=== PATIENT | male | born 1965 | race Two or more races ===

== ENCOUNTER 2021-03-08 08:26 | Outpatient (REF) | payer MEDICAID, SELFPAY ==
--- NOTE | ~2021-03-08 | XR_ITS ---
EXAMINATION: XR CHEST CLINICAL INFORMATION: Opioid dependence COMPARISON: None TECHNIQUE: 2 views of the chest were obtained. FINDINGS: No significant abnormality is noted involving the heart, lungs, mediastinum, bony thorax or soft tissues. XR/XR chest 2V IMPRESSION: Unremarkable examination.
== END 2021-03-08 08:27 | disposition home or self-care (01) ==
LOC: HO.XRAY 08:26
PROVIDERS: Visit Provider Emergency Medicine
DX: F11.20 Opioid dependence, uncomplicated (principal)
CPT/HCPCS: 71046

== ENCOUNTER 2021-11-29 12:50 | Outpatient (REF) | payer MEDICAID, SELFPAY ==
[2021-11-29 14:09] LABS: COVID-19 Test Negative (Negative); IDNOW Serial# 08D9AD1C
== END 2021-11-29 12:51 | disposition home or self-care (01) ==
LOC: HO.LAB 12:50
PROVIDERS: Visit Provider Internal Medicine
DX: Z20.822 Contact with and (suspected) exposure to COVID-19 (principal)
CPT/HCPCS: 87635; C9803

== ENCOUNTER 2022-08-21 11:19 | Outpatient (REF) | payer MEDICAID, SELFPAY ==
--- NOTE | ~2022-08-21 | XR_ITS ---
EXAMINATION: XR CHEST CLINICAL INFORMATION: Active tuberculosis COMPARISON: 03/08/2021 TECHNIQUE: 2 views of the chest were obtained. FINDINGS: No significant abnormality is noted involving the heart, lungs, mediastinum, bony thorax or soft tissues. XR/XR chest 2V IMPRESSION: Unremarkable examination.
== END 2022-08-21 11:20 | disposition home or self-care (01) ==
LOC: HO.XRAY 11:19
PROVIDERS: PCP Registered Nurse; Visit Provider Registered Nurse
DX: R76.11 Nonspecific reaction to tuberculin skin test without active tuberculosis (principal)
CPT/HCPCS: 71046

== ENCOUNTER 2022-09-19 07:46 | Outpatient (REF) | payer MEDICAID, SELFPAY ==
--- NOTE | 2022-09-19 | PFT_ITS ---
INDICATION: Asthma. SPIROMETRY: FEV1 to FVC of 32% with an FEV1 of 1.41 L, which is 37% predicted and an FVC of 4.41 L, which is 92% predicted. Post bronchodilators there was a significant improvement of the FEV1 and the FVC. To note, the [id number] decreased down to 16% predicted. Maximum voluntary ventilation 25% predicted. LUNG VOLUMES: Total lung capacity 95% predicted with a residual volume 134% predicted. DIFFUSION CAPACITY: DLCO 42% predicted. COMPARISONS: None. INTERPRETATION: There is an obstructive ventilatory defect consistent with severe COPD. there is a significant response to bronchodilators noted and significant small airways disease. There is also a severely decreased maximum voluntary ventilation secondary to likely deconditioning and also worsening dynamic inspiratory capacity. Lung volumes are significant for significant air trapping due to the COPD. There is also a severe diffusion impairment likely secondary to emphysema and other parenchymal lung conditions should be considered. Clinical correlation warranted. Dakotah Espinosa MD MR/MODL / [id number]
== END 2022-09-19 07:47 | disposition home or self-care (01) ==
LOC: HO.RESP 07:46
PROVIDERS: PCP Registered Nurse; Visit Provider Registered Nurse
DX: J45.20 Mild intermittent asthma, uncomplicated (principal)
CPT/HCPCS: 94060; 94727; 94729

== ENCOUNTER 2022-09-25 13:32 | Outpatient (REF) | payer MEDICAID, SELFPAY ==
--- NOTE | ~2022-09-25 | US_ITS ---
EXAMINATION: US SCROTUM CLINICAL INFORMATION: Possible hernia. COMPARISON: None TECHNIQUE: A sonogram of the scrotum was performed assessing cardenas-scale appearance and color Doppler flow. Spectral Doppler analysis of the arterial and venous flow were performed in the testes bilaterally. FINDINGS: RIGHT: Right testicle measures 4.2 x 1.6 x 2.5 cm, volume 8.8 mL. No focal testicular parenchymal lesions are visualized. Spectral Doppler analysis of the arterial and venous flow is normal in the right testis. Testicular appendix measures 0.2 cm. Right epididymal head is normal in size. No right hydrocele is seen. Varicocele present. Right epididymal Doppler flow is normal. No inguinal hernia identified. LEFT: Left testicle measures 4.1 x 1.8 x 2.5 cm, volume 9.7 mL. No focal testicular parenchymal lesions are visualized. Spectral Doppler analysis of the arterial and venous flow is normal in the left testis. Left epididymal head is normal. There is some increased vascularity and thickening of the epididymal tail. No left hydrocele is seen. No varicocele. US/US scrotum IMPRESSION: 1. No inguinal hernia identified. 2. Right-sided varicocele. 3. Mild thickening and increased vascularity of the left epididymal tail. This could represent epididymitis.
== END 2022-09-25 13:33 | disposition home or self-care (01) ==
LOC: HO.US 13:32
PROVIDERS: Visit Provider Registered Nurse
DX: R10.31 Right lower quadrant pain (principal)
CPT/HCPCS: 76870

== ENCOUNTER → 2022-11-15 10:32 | Outpatient (BNVA) | payer MEDICAID, SELFPAY | PROVIDERS: PCP Registered Nurse; Visit Provider Urology | DX: S76.211A Strain of adductor muscle, fascia and tendon of right thigh, initial encounter (principal); N50.819 Testicular pain, unspecified; N40.0 Benign prostatic hyperplasia without lower urinary tract symptoms; Z12.5 Encounter for screening for malignant neoplasm of prostate | CPT/HCPCS: 99202 ==

== ENCOUNTER → 2023-01-12 13:12 | Outpatient (BNVA) | payer MEDICAID, SELFPAY | PROVIDERS: PCP Registered Nurse; Visit Provider Hospitalist | DX: J44.9 Chronic obstructive pulmonary disease, unspecified (principal); F17.200 Nicotine dependence, unspecified, uncomplicated | CPT/HCPCS: 99202 ==

== ENCOUNTER 2023-02-23 13:29 | Outpatient (REF) | payer MEDICAID, SELFPAY ==
--- NOTE | ~2023-02-23 | CT_ITS ---
EXAMINATION: CT CHEST SCREENING CLINICAL INFORMATION: Current smoker. 37 pack year history. COMPARISON: None available. TECHNIQUE: Multidetector volumetric CT imaging of the chest is performed without contrast using low dose technique. Additional 2D coronal and sagittal reformatted images and axial 3D maximum intensity projection (MIP) images are generated on the CT workstation. This CT examination was performed using dose optimization techniques as appropriate, variously including the following: *Automated exposure control *Adjustment of mA and/or kV according to patient size (this includes techniques or standardized protocols for targeted exams where dose is matched to indication/reason for exam; i.e. extremities or head) *Use of iterative reconstruction technique DLP: 48 mGy-cm FINDINGS: LUNGS: Mild bronchial wall thickening and areas of bronchial soft tissue opacification. Scarring or subsegmental atelectasis in the right middle lobe. Mild emphysema. MEDIASTINUM: The mediastinum is normal. CORONARY ARTERY CALCIFICATION: None visualized on this study. PLEURA: There is no pleural effusion. No pleural mass or thickening. AXILLA: No lymphadenopathy. UPPER ABDOMEN: Partially visualized 5.5 cm low-attenuation area in the right upper quadrant. Is uncertain if this represents a fluid-filled dilated bowel are present cyst. OSSEOUS STRUCTURES: Degenerative changes of the spine. CT/CT lung screening IMPRESSION: Mild emphysema. Scattered airways disease with bronchial wall thickening and some soft tissue opacification. Question fluid-filled dilated loop of bowel versus cyst in the right upper quadrant. Partially imaged. ASSESSMENT: Lung-RADS category 2: Benign RECOMMENDATION: Annual low-dose chest CT follow-up recommended.
== END 2023-02-23 13:30 | disposition home or self-care (01) ==
LOC: HO.CT 13:29
PROVIDERS: PCP Registered Nurse; Visit Provider Physician Assistant Medical
DX: Z12.2 Encounter for screening for malignant neoplasm of respiratory organs (principal); F17.210 Nicotine dependence, cigarettes, uncomplicated
CPT/HCPCS: 71271; G0296

== ENCOUNTER 2023-05-15 09:46 | Outpatient (AMB) | payer MEDICAID, SELFPAY ==
[2023-05-15 09:57] VITALS: BP 136/78; PULSE 72; O2SAT 96; BMI 21.1
--- NOTE | 2023-05-15 09:57 | A.OFFVIS_ITS ---
Intake Vital Signs 05/15/23 09:57 Height 5 ft 11 in Weight 151 lb 0.266 oz BMI 21.1 BP 136/78 Blood Pressure Location Lt brachial Position Sitting Pulse 72 Pulse Source Pulse Oximeter Pulse Oximetry (%) 96 Oxygen Delivery Method Room Air Intake Visit Reasons: asthma Department Traffic Freight Router Required: No Allergies No Known Allergies Allergy (Verified 05/15/23 10:01) HPI HPI Comments History of Present Illness Details The patient has had worsening respiratory symptoms. Significant coughing wheezing. Sometimes he gets up with severe chest tightness and wheezing and has to use his either albuterol or nebulized therapy to improve his symptoms. He has been using Symbicort twice a day in addition to his rescue inhaler. He did undergo pulmonary function studies sometime in September 2022 which I personally reviewed with him. He has a very severe obstruction consistent with very severe COPD and also has significant diffusion impairment. We did go for brief walking oximetry the patient did desaturate down to the low 90s but did not qualify for oxygen. The patient likely has severe asthma as well he continues to smoke and he needs to quit. At this moment will go ahead and maximize his respiratory therapy by switching over to nebulized therapy since he failed inhalers. Hopefully with that he will start feeling better. The patient does have prednisone at home that he can take if he worsens. In the meantime the patient will be set up for the lung cancer screening program and will be assisted with smoking cessation. Based on his severe disease at an early age were also do alpha-1 testing to rule out alpha-1 antitrypsin deficiency. 05/15/2023 the patient is here for a pulmonary follow-up visit. Overall he is still having hard time with breathing. Does have severe COPD. The patient un fortunately continues to smoke cigarettes. He tried multiple nicotine supplementations at the not helpful. Therefore will go ahead and prescribe Chantix for him. He understands that to watch for any signs and symptoms of depression. I also spoke to the family. If she does he can stop the medicine and call. Otherwise hopeful that he can stop smoking with Chantix. The patient has had a lot of respiratory medications. Right now is hard for him to stay adherent to all this therapy. He is still using the Symbicort and also Brovana and budesonide in addition to Spiriva. Will go ahead and simplify his regimen by switching over to Trelegy 200. He can also continue using the budesonide and the albuterol based on his severe obstruction. I am hopeful that when he stops smoking his symptoms improved. He also had a lung cancer screening CT scan. We did review it demonstrating some emphysema and also chronic bronchitis. [facility] Medical History (Updated 02/23/23 @ 13:24 by Isis Beltrán PA-C) Asthma-COPD overlap syndrome Groin strain Hepatitis A immune History of latent tuberculosis Hypertension, essential, benign Mild intermittent asthma Nicotine dependence, cigarettes, uncomplicated Opioid dependence Retinal vein occlusion of left eye Social History (Updated 02/23/23 @ 13:25 by Isis Beltrán PA-C) Patient Tobacco Use Status: Current everyday Tobacco user Tobacco use type: Cigarette Cigarettes Per Day: 10 Years Smoked: (onset 18yo, 1/2ppd x 40yrs, 20PYH) Review of Systems Const Reports no additional complaints Eyes Reports no additional complaints ENT Denies neck pain Card Denies leg edema and Reports dyspnea on exertion Resp Reports cough, Reports dyspnea on exertion and Reports wheezing GI Denies constipation Musc Reports no additional complaints and Denies neck pain Skin/Breast Denies rash and Denies unusual bruising Neuro Reports no additional complaints Psych Reports no additional complaints Endo Reports no additional complaints Cristino/Lymph Reports no additional complaints Aller/Immun Reports no additional complaints and Reports wheezing Physical Exam Vital Signs: Last Vital Signs Pulse 72 05/15/23 09:57 BP 136/78 05/15/23 09:57 Pulse Ox 96 05/15/23 09:57 Oxygen Delivery Method Room Air 05/15/23 09:57 BMI result Body Mass Index 21.1 Const General: healthy appearing, no acute distress and well developed Orientation/consciousness: patient oriented x3 HEENT Head: Yes normocephalic and Yes atraumatic Eyes Conjunctivae: conjunctivae normal Neck Neck: Yes normal visual inspection Chest Chest palpation & inspection: normal inspection of the chest Resp Effort & Inspection: audible wheezes Auscultation: wheezes Cardio Rate: regular rate Rhythm: regular rhythm Heart sounds: S1 normal heart sound present and S2 normal heart sound present GI Inspection: Yes normal to inspection Palpation (GI): Soft to palpation Other: Prostate Exam: smooth, 1+ right groin tenderness Skin General skin exam: no rashes or lesions noted Neuro General: patient oriented x3 Extrem General: No pedal edema Psych Appearance: grossly normal Affect: normal affect Assessment & Plan Assessment & Plan (1) Tobacco dependence: Code(s): F17.200 - Nicotine dependence, unspecified, uncomplicated (2) Asthma-COPD overlap syndrome: Code(s): J44.9 - Chronic obstructive pulmonary disease, unspecified Plan Stop Brovana Start Trelegy Needs a nebulizer continue budesonide Albuterol twice a day start Chantix, monitor for any depression LDCT yearly F/U 4-6 months Medications: New varenicline (Chantix Starting Month Box) PO PER PKG DIR 42 ea 0RF Coding Level of Care Code Est Pt Level 4 (73322) Diagnoses Tobacco dependence F17.200 Asthma-COPD overlap syndrome J44.9 Time Spent (min) 19
== END 2023-05-15 10:26 | disposition home or self-care (01) ==
PROVIDERS: PCP Registered Nurse; Visit Provider Hospitalist
DX: F17.200 Nicotine dependence, unspecified, uncomplicated (principal); J44.9 Chronic obstructive pulmonary disease, unspecified
CPT/HCPCS: 99214

== ENCOUNTER → 2023-05-15 09:46 | Outpatient (BNVA) | payer MEDICAID, SELFPAY | PROVIDERS: PCP Registered Nurse; Visit Provider Hospitalist | DX: J44.9 Chronic obstructive pulmonary disease, unspecified (principal); F17.210 Nicotine dependence, cigarettes, uncomplicated | CPT/HCPCS: 99212 ==

== ENCOUNTER 2024-02-01 09:01 | Outpatient (REF) | payer MEDICAID, SELFPAY ==
[2024-02-01 12:10] LABS: Alanine Aminotransferase 14 U/L (0-40); Albumin Level 4.3 g/dL (3.5-5.0); Alkaline Phosphatase 52 U/L (39-117); Aspartate Amino Transferase 21 U/L (5-37); Bilirubin Direct 0.3 mg/dL (0.0-0.5); Bilirubin Total 0.8 mg/dL (0.0-1.0); Total Protein 8.1 g/dL (6.5-8.0)
[2024-02-04 13:08] LABS: HCV Log PCR <1.18 NOT DETECTED Log IU/mL (NOT DETECTED); HepC Viral Load <15 NOT DETECTED IU/mL (NOT DETECTED)
== END 2024-02-01 09:02 | disposition home or self-care (01) ==
LOC: HO.HHCL 09:01
PROVIDERS: Visit Provider Family Medicine
DX: B18.2 Chronic viral hepatitis C (principal)
CPT/HCPCS: 36415; 80076; 87522

== ENCOUNTER 2025-04-03 10:00 | Outpatient (REF) | payer MEDICAID, SELFPAY ==
--- OUTSIDE RECORDS SUMMARY | 2025-04-03 10:36 | XMS_ITS | Encounter Summary ---
Author Organization [employer] Address [address] [place] [address] Care Team Providers Care Institutional Cook Name Role Phone Rosalba Sutherland ANIMAL HUSBANDRY TEACHER Primary Care Provider [phone] Reason for Visit * Reason Onset Date Comments Med Refill 03/27/2025 Encounter Details Date Type Department Care Team (Late st Contact Info) Description 03/27/2025 Refill [facility] [address] [place] [address] Concha Grayson RN Opioid dependence, uncomplicated (CMS/HCC) Social History Tobacco Use Types Packs/Day Years Used Date Smoking Tobacco: Every Day Cigarettes Smokeless Tobacco: Never Alcohol Use Standard Drinks/Week Comments Never 0 (1 standard drink = 0.6 oz pur e alcohol) Depression Answer Date Recorded Patient Health Questionnaire-9 Score 5 01/12/2025 Patient Health Questionnaire-9 Score 5 01/12/2025 Last PHQ-9: Questionnaire Data Not on file 0 01/12/2025 Housing Stability Answer Date Recorded What is your housing situation today? I have johnathan duncan 06/16/[address] you li ve. Do you have problems with any of the following? None of the above 06/16/2024 Food Insecurity Answer Date Recorded Within the past 12 months, y ou worried that your food would run out before you got money to buy more: Often true 01/20/2025 Within the past 12 months,th e food you bought just didn't last and you didn't have enough money to get more: Often true Transportation Answer Date Recorded In the past 12 months, has l ack of transportation kept you from medical appts, meetings, work or from getting things needed for daily living? No 06/16/2024 Utilities Answer Date Recorded In the past 12 months, has t he electric, gas, oil or water company threatened to shut off services in your home? No 06/16/2024 Depression Answer Date Recorded Patient Health Questionnaire-2 Score 2 01/12/2025 Internet Access Answer Date Recorded Internet Access Q1 Yes 06/16/2024 Internet Access Q2 Not on file 06/16/2024 Sex and Gender Information Value Date Recorded Sex Assigned at Male 08/07/2022 10:38 AM EDT Legal Sex Male 10:38 AM EDT Gender Identity Male 08/07/2022 10:38 AM EDT Sexual Orientation Straight 08/07/2022 10 :38 AM EDT documented as of this encounter Plan of Treatment Upcoming Encounters Date Type Department Care Team (Late st Contact Info) Description 04/03/2025 11:15 AM EDT Office Visit [address] [address] Rosalba Sutherland FNP [address] [place] [id number] Arrived 04/06/2025 1:15 PM EDT Office Visit [address] [address] Yuriy Ibrahim MD [address] [place] [id number] 06/01/2025 1:00 PM EDT Office Visit [address] [address] Yuriy Ibrahim MD [address] [place] [id number] documented as of this encounter Visit Diagnoses Diagnosis Opioid dependence, uncomplicated (CMS/HCC) documented in this encounter Additional Health Concerns Assessment Noted Time PHQ-9 Depression Total Score: 5 01/13/20 25 8:10 AM EDT documented as of this encounter Care Teams Institutional Cook Relationship Specialty Start Date End Date Rosabla Sutherland FNP [address] [place] [id number] PCP - General Family Medicine 06/04/22 documented as of this encounter
[2025-04-03 11:11] LABS: MANUAL DIFF FLAG NO
[2025-04-03 11:32] LABS: Basophils Percent Auto 0.5 % (0-2); Eosinophils Absolute Auto 0.2 X10*3/uL (0.0-0.4); Eosinophils Percent Auto 2.7 % (0-4); Hematocrit 43.9 % (42.0-52.0); Hemoglobin 14.8 g/dl (14.0-18.0); Imm Gran Abs Auto 0.03 X10*3/uL (0.00-0.03); Imm Gran Pct Auto 0.4 % (0.0-0.4); Lymphocytes Absolute Auto 1.3 X10*3/uL (1.2-4.9); Lymphocytes Percent Auto 16.8 % (20-40); Mean Corpuscular HGB Conc 33.7 g/dl (31.0-36.0); Mean Corpuscular Hemoglobin 30.9 pg (27.0-33.0); Mean Corpuscular Volume 91.6 fL (80.0-98.0); Mean Platelet Volume 11.2 fL (9.4-12.4); Monocytes Absolute Auto 0.4 X10*3/uL (0.1-1.2); Monocytes Percent Auto 5.1 % (2-11); Neutrophils Absolute Auto 5.5 x10*3/uL (2.0-8.3); Neutrophils Percent Auto 74.5 % (45-73); Platelet Count 248 X10*3/uL (160-400); Red Blood Count 4.79 X10*6/uL (4.60-5.80); Red Cell Distribution Width 13.5 % (11.0-16.0); White Blood Count 7.4 X10*3/uL (4.8-10.8)
[2025-04-03 11:42] LABS: Alanine Aminotransferase 24 U/L (0-40); Albumin Level 4.5 g/dL (3.5-5.0); Alkaline Phosphatase 70 U/L (39-117); Anion Gap 12 (12-20); Aspartate Amino Transferase 31 U/L (5-37); Bilirubin Direct 0.3 mg/dL (0.0-0.5); Bilirubin Total 0.6 mg/dL (0.0-1.0); Blood Urea Nitrogen 17 mg/dL (9-16); Carbon Dioxide 28 mmol/L (22-29); Chloride 104 mmol/L (96-108); Cholesterol 139 mg/dL (<200); Estimated Glomerular Filt Rate > 60; Glucose Random 132 mg/dL (60-115); HDL Cholesterol 54 mg/dL (>40); LDL Cholesterol Calculated 76 mg/dL (<100); Potassium 4.2 mmol/L (3.3-5.1); Sodium 140 mmol/L (135-145); Triglycerides 48 mg/dL (<150)
[2025-04-03 11:58] LABS: Prostate Specific Antigen 0.13 ng/mL (<0.05-4.0)
[2025-04-03 12:08] LABS: HIV AB/AG Nonreactive (Nonreactive); HIV Num 1 0.06 S/CO (0.00-0.99); ~HepC Num1 13.41 S/CO (0.00-0.79); ~Hepatitis C Antibody Reactive (Nonreactive)
[2025-04-03 12:09] LABS: Syphilis Screen Nonreactive (Nonreactive)
[2025-04-06 13:13] LABS: TS Negative Control Passed; TS Panel A 8; TS Panel B 14; TS Positive Control Passed; TSpotTB Positive (Negative)
[2025-04-08 21:44] LABS: HCV Log PCR <1.18 NOT DETECTED Log IU/mL (NOT DETECTED); HepC Viral Load <15 NOT DETECTED IU/mL (NOT DETECTED)
== END 2025-04-03 10:01 | disposition home or self-care (01) ==
LOC: HO.HHCL 10:00
PROVIDERS: PCP Registered Nurse; Referring Provider Emergency Medicine; Visit Provider Registered Nurse
DX: Z00.00 Encounter for general adult medical examination without abnormal findings (principal); F11.20 Opioid dependence, uncomplicated; I10 Essential (primary) hypertension
CPT/HCPCS: 36415; 80053; 80061; 80076; 82248; 84153; 85025; 86481; 86780; 86803; 87389; 87522

== ENCOUNTER → 2025-06-05 12:44 | Outpatient (REF) | payer MEDICAID, SELFPAY ==
--- OUTSIDE RECORDS SUMMARY | 2025-06-01 13:00 | XMS_ITS | Encounter Summary ---
Author Organization [employer] Address [address] [place] [address] Care Team Providers Care Ruby On Rails Consultant Name Role Phone Rosalba Sutherland SENIOR ANALYSIS SPECIALIST Primary Care Provider [phone] Reason for Visit * Reason Comments tele obat f/u Encounter Details Date Type Department Care Team (Latest Contact Info) Description 06/01/2025 1:00 PM EDT Telemedicine [facility] [address] [place] [address] Yuriy Ibrahim MD [address] [place] [address] Opioid dependence, uncomplicated (CMS/HCC) (Primary Dx) Social History Tobacco Use Types Packs/Day Years [...] AM EDT documented as of this encounter Progress Notes * Yuriy Ibrahim MD - 06/01/2025 1:00 PM EDT Subjective Patient ID: Jose Ramon Stevenson is a 60 y.o. male. Tongue Stitcher: Radha Vines reviewed. Taking Suboxone 24/6 mg on 12 week schedule as prescribed for opioid dependence with no adverse effects. Induction date 01/28/2021. Has been in the program for 4 years 4 months. Denies cravings, w/d symptoms or illicit substance use. Has Narcan rohan. Declines speaking with conditioning coach or clinician at this time. Has had diarrhea since this AM, no n/v, that he thinks was caused by a fruit he ate last night. No abd pain or blood in stool. Advised to call [facility] if not improving. Smokes 5-6 cigarettes/day. Has NRT. Occasional EtOH. Lives with cousin. Stopped smoking weed. Was referred to [facility] tuberculosis clinic after positive T spot and negative chest x-ray in 2020. He no-showed for 2 visits and was never seen there. Today he insists that he was seen in [place] for TB and was treated for several months with oral medication. RN contacted [facility], and they saw him September, for low-dose CT scan of the chest as part of their cancer screening program, but did not treat him for latent TB. I spoke again today with the [facility] tuberculosis clinic, and they advised resending all of his forms, chest x-ray report, T spot test results, and they will schedule an appointment with him to determine if he was actually treated for latent TB. The following portions of the chart were reviewed this encounter and updated as appropriate: Review of Systems Constitutional: Negative for fever. Respiratory: Negative for shortness of breath. Cardiovascular: Negative for chest pain. Gastrointestinal: Positive for diarrhea. Negative for abdominal pain, nausea and vomiting. Skin: Negative for rash. Neurological: Negative for headaches. Objective Physical Exam Procedures Assessment/Plan Diagnoses and all orders for this visit: Opioid dependence, uncomplicated (CMS/HCC) Recovery support, harm reduction (including Narcan) and behavioral health attendance reviewed. Continue Suboxone 24/6 mg on 12 week schedule. Has Narcan. documented in this encounter Plan of Treatment Upcoming Encounters Date Type Department Care Team (Late st Contact Info) Description 08/24/2025 1:00 PM EST Office Visit [facility] [address] [place] [address] Yuriy Ibrahim MD [address] [place] [address] 10/12/2025 9:30 AM EST Office Visit [facility] [address] [place] [address] Maya Zaman, OD [address] [place] [address] documented as of this encounter Visit Diagnoses Diagnosis Opioid dependence, uncomplicated (CMS/HCC)- Primary documented in this encounter Additional Health Concerns Assessment Noted Time PHQ-9 Depression Total Score: 5 01/13/20 25 8:10 AM EDT documented as of this encounter Care Teams Ruby On Rails Consultant Relationship Specialty Start Date End Date Rosalba Sutherland FNP [address] [place] [address] PCP - General Family Medicine 06/04/22 documented as of this encounter
--- NOTE | 2025-06-05 12:49 | CA_ITS ---
Transthoracic Echocardiogram Patient (Last, First, Middle): Jose Ramon Lemus, Gender: Male Date of : 1965 Age: 60 Procedure Date: 06/05/2025 Procedure Type: Transthoracic Echocardiogram Location: OP Height: 167.64 cm Weight: 63.5 kg BSA: 1.72 m2 Heart Rate: bpm BP: 124 / 80 mmHg Hand Patcher: JOSEPHINE Referring MD: Rosalba HERRERA Symptoms: COPD Study Quality: Good ECG Rhythm: Sinus Conclusions: - The left ventricular systolic function is normal. The calculated ejection fraction is 64% by biplane method. - No obvious valvular pathology seen on this study. Findings Left Ventricle Normal left ventricular cavity size. There is normal left ventricular wall thickness. The left ventricular systolic function is normal. The calculated ejection fraction is 64% by biplane method. There is no evidence of regional wall motion abnormalities. Diastolic function is normal for age. Right Ventricle Mildly increased right ventricular cavity size. There is normal right ventricular systolic function. Atria Both atria are normal in size. Aortic Valve There is a normal trileaflet aortic valve. There is no aortic valve stenosis. There is no aortic valve regurgitation. Mitral Valve The mitral valve appears normal. There is no mitral valve regurgitation. There is no mitral valve stenosis. Pulmonic Valve The pulmonic valve is likely normal. Tricuspid Valve There is trace tricuspid valve regurgitation. There is no evidence of pulmonary hypertension. Great Vessels The asc aorta is normal in size. Venous The inferior vena cava is normal in size and collapses greater than 50% with inspiration. Pericardium/Pleural There is no evidence of pericardial effusion. Prior Study Comparison No prior study available for comparison. Recommendations, Care & Conclusions No obvious valvular pathology seen on this study. Measurements 2D Linear Measurements IVSd: 0.76 0.6-0.9/0.6-1.0 cm LVIDd: 5.54 3.9-5.3/4.2-5.9 cm LVIDd Index: 3.22 2.4-3.2/2.2-3.1 cm/m2 LVIDs: 3.62 2.0-3.6 cm LVPWd: 0.70 0.7-1.1 cm Ao Root: 3.50 2.1-3.5 cm LA Diam: 3.20 2.7-3.8/3.0-4.0 cm LAIDs Index: 1.86 1.5-2.3 cm/m2 LV Mass: 179.28 67-162/88-224 g LV Mass Index: 104.23 43-95/49-115 g/m2 LVOT Diam: 2.20 3.0+(-)1.3 cm 2D Systolic Function EF 4C: 63.50 >55% EF 2C: 62.20 >55% EF BiP: 63.80 >55% Mitral Valve MV Pk E: 0.62 MV PK A: 0.53 MV Decel Time: 215.00 E/A: 1.20 E'Lateral: 14.10 E'Medial: 7.29 E/E' Med: 8.60 E/E' Lat: 4.40 PHT: 63.00 MVA PHT: 3.49 Decel [place]: 2.90 Aortic Valve AoV Pk Yaya: 1.31 AoV Mn Yaya: 0.89 AoV VTI: 0.36 AoV Pk Grad: 7.00 Aov Mn Grad: 4.00 MARRY Cont.VTI: 2.48 LVOT LVOT Pk Yaya: 1.00 LVOT Mn Yaya: 0.64 LVOT VTI: 0.23 LVOT Pk Grad: 4.00 LVOT Mn Grad: 2.00 LVOT Diam: 2.20 LVOT Area: 3.80 Diastolic Function MV Pk E: 0.62 MV Pk A: 0.53 E/A: 1.20 E'Medial: 7.29 E/E' Med: 8.60 E' Laterial: 14.10 E/E' Lat: 4.40 Right Ventricle TAPSE (mm): 22.00 TVS' Yaya: 12.00 Tricuspid Valve TR Pk Yaya: 2.33 TR Pk Grad: 22.00 RA Press: 3.00 RVSP: 25.00 Great Vessels Aorta Ao Root-2D: 3.50 2.0-3.7 cm Ao Asc: 3.20 2.1-3.4 cm Pulmonary Veins Pulm Vein S/D 1.10 Pulmonary Valve PV Pk Yaya: 0.94 Peak PV Grad: 4.00 Updated in Other Vendor System with Status of Final Wili Mustafa MD electronically signed on 06/06/2025 11:41:19 AM with status of Final
--- OUTSIDE RECORDS SUMMARY | 2025-06-05 13:12 | XMS_ITS | Encounter Summary ---
Author Organization [employer] Address [address] [place] [address] Care Team Providers Care Front Office Medical Assistant Name Role Phone [place] [facility] Primary Care Provider [phone] Reason for Visit * Reason Comments Med Refill Encounter Details Date Type Department Care Team ([facility] st Contact Info) Description 03/10/2024 Refill [facility] [address] [place], [place] [id number] [place] [facility] [address] [place] [address] Shortness of breath Social History Tobacco Use Types Packs/Day Years Used Date Smoking Tobacco: Every Day Cigarettes Smokeless Tobacco: Never Alcohol Use Standard Drinks/Week Comments Never 0 (1 standard drink = 0.6 oz pur e alcohol) Depression Answer Date Recorded Patient Health Questionnaire-9 Score 11 05/14/2023 Housing Stability Answer Date Recorded What is your housing situation today? I have johnathan duncan 07/23/[address] you li ve. Do you have problems with any of the following? None of the above 07/23/2023 Food Insecurity Answer Date Recorded Within the past 12 months, y ou worried that your food would run out before you got money to buy more: Never True 07/23/2023 Within the past 12 months,th e food you bought just didn't last and you didn't have enough money to get more: Never True Transportation Answer Date Recorded In the past 12 months, has l ack of transportation kept you from medical appts, meetings, work or from getting things needed for daily living? No 07/23/2023 Utilities Answer Date Recorded In the past 12 months, has t he electric, gas, oil or water company threatened to shut off services in your home? No 07/23/2023 Depression Answer Date Recorded Patient Health Questionnaire-2 Score 2 05/14/2023 Sex and Gender Information Value Date Recorded Sex Assigned at Male 08/07/2022 10:38 AM EDT Legal Sex Male 10:38 AM EDT Gender Identity Male 08/07/2022 10:38 AM EDT Sexual Orientation Straight 08/07/2022 10 :38 AM EDT documented as of this encounter Plan of Treatment Upcoming Encounters Date Type Department Care Team (Late st Contact Info) Description 08/24/2025 1:00 PM EST Office Visit [facility] [address] [place] [address] Yuriy Ibrahim MD [address] [place] [address] 10/12/2025 9:30 AM EST Office Visit [facility] [address] [place] [address] TarkaMaya, OD [address] [place] [address] documented as of this encounter Visit Diagnoses Diagnosis Shortness of breath documented in this encounter Additional Health Concerns Assessment Noted Time PHQ-9 Depression Total Score: 11 023 10:08 AM EDT documented as of this encounter Care Teams Front Office Medical Assistant Relationship Specialty Start Date End Date Rosalba Sutherland FNP [address] [place] [address] PCP - General Family Medicine 06/04/22 documented as of this encounter
--- OUTSIDE RECORDS SUMMARY | 2025-06-05 13:12 | XMS_ITS | Clinical Summary ---
Author Organization [address] [place] [address] Address [address] [place] [address] Phone Care Team Providers Care Executive Manager Name Role Phone [facility] Primary Care Provider [phone] Allergies No known active allergies Medications albuterol 2.5 mg /3 mL (0.083 %) nebulizer solution Take 3 mL (2.5 mg total) by nebulization every 6 (six) hours if needed for wheezing. Active albuterol HFA (PROVENTIL HFA;VENTOLIN HFA) 108 (90 Base) MCG/ACT inhaler Inhale 2 puffs by mouth every 6 (six) hours if needed for wheezing. Active amLODIPine (NORVASC) 10 mg tablet Take 1 tablet (10 mg total) by mouth 1 (one) time each day. Active buprenorphine- naloxone (SUBOXONE) 8-[address] film [address] 1 film under the tongue 3 (three) times a day. After the medication is completely dissolved, take a large sip of water, swish it around teeth and gums, and swallow. Wait at least 1 hour before brushing teeth to avoid damage to your teeth. Max Daily Amount: 3 films Active vitamin D3-folic acid 125 mcg (5,000 unit)-1 mg tablet Take 1 tablet by mouth 1 (one) time each day. Active cyanocobalamin (VITAMIN B-12) 1,000 mcg tablet Take 1 tablet (1,000 mcg total) by mouth 1 (one) time each day. Active escitalopram (LEXAPRO) 5 mg tablet Take 1 tablet (5 mg total) by mouth 1 (one) time each day. Active fluticasone propion-salmet Sada (ADVAIR HFA) 230-21 mcg/actuation inhaler Inhale 2 puffs by mouth 2 (two) times a day. Rinse mouth with water after use to reduce aftertaste and incidence of candidiasis. Do not swallow. Active magnesium 250 mg tablet Take by mouth. Activ e naloxone (NARCAN) 4 mg/actuation nasal spray KIT (Take home med ONLY) Administer 1 spray (4 mg total) into affected nostril(s) See administration instructions. Active naproxen (NAPROSYN) 375 mg tablet Take 1 tablet (375 mg total) by mouth 2 (two) times a day with meals. Active olmesartan (BENICAR) 20 mg tablet Take 0.5 tablets (10 mg total) by mouth 1 (one) time each day. Active omega-3 acid ethyl esters (LOVAZA) 1 gram capsule Take 1 capsule (1 g total) by mouth 2 (two) times a day. Active omeprazole (PriLOSEC) [address] capsule Take 1 capsule (20 mg total) by mouth 1 (one) time each day. Do not crush or chew. Active tiotropium (Spiriva Respimat) 2.5 mcg/actuation inhalation spray Inhale 2 puffs by mouth 1 (one) time each day. Active triamcinolone (KENALOG) 0.025 % cream Apply topically 2 (two) times a day. Active bisacodyL (DULCOLAX) 5 mg EC tablet Take 2 tablets by mouth right before beginning bowel prep. See instructions provided by the office 2 tablet 5 Active polyethylene glycol (Golytely) 236-22.74-6.74 -5.86 gram solution Take 4L by mouth once for one dose. May substitue any PEG. Starting at 6PM the night before your procedure drink 1 8oz glasses at your own pace until you complete half of the gallon. Finish 2nd half of the gallon 5 hours before your procedure. 4000 mL 5 Active polyethylene glycol (Golytely) 236-22.74-6.74 -5.86 gram solution Take 4L by mouth once for one dose. May substitue any PEG. Starting at 6PM the night before your procedure drink 1 8oz glasses at your own pace until you complete half of the gallon. Finish 2nd half of the gallon 5 hours before your procedure. 4000 mL 5 Active bisacodyL (DULCOLAX) 5 mg EC tablet Take 2 tablets by mouth right before beginning bowel prep. See instructions provided by the office 2 tablet Active Social History Tobacco Use Types Packs/Day Years Used Date Smoking Tobacco: Never Assessed Sex and Gender Information Value Date Recorded Sex Assigned at Not on file Legal Sex Male 4:31 AM EST Gender Identity Male 03/23/2025 12:50 PM EDT Sexual Orientation Not on file Plan of Treatment Health Maintenance Due Date Last Done Comments DTaP,Tdap,and Td Vaccines (1 - Tdap) 02/02/1984 Pneumococcal Vaccine: 50+ Ye ars (1 of 1 - PCV) 2015 Zoster Vaccines (1 of 2) 2015 COVID-19 Vaccine ( - 2023-2 5 season) 2024 Cholesterol Screening (Lipid Panel) 09/19/2024 Colorectal Cancer Screening: Colonoscopy 09/19/2024 HIV Screening 09/19/2024 Hepatitis C Screening 09/19/2024 Social Influencers of Health Screening 09/19/2024 Depression Screening 10/08/2024 Influenza Vaccine (#1) 2025 RSV Immunization Adult Patie nts (1 - 1-dose 75+ series) 02/02/2040 HIB Vaccines Aged Out No longer eligi ble based on patient's age to complete this topic HPV Vaccines Aged Out No longer eligi ble based on patient's age to complete this topic Hepatitis A Vaccines Aged Out No long er eligible based on patient's age to complete this topic Hepatitis B Vaccines Aged Out No long er eligible based on patient's age to complete this topic IPV Vaccines Aged Out No longer eligi ble based on patient's age to complete this topic MMR Vaccines Aged Out No longer eligi ble based on patient's age to complete this topic Meningococcal ACWY Vaccine Aged Out N o longer eligible based on patient's age to complete this topic Meningococcal B Vaccine Aged Out No l onger eligible based on patient's age to complete this topic RSV Immunization Patients Un arnulfo 20 months Aged Out No longer eligible b ased on patient's age to complete this topic Varicella Vaccines Aged Out No longer eligible based on patient's age to complete this topic Insurance MEDICAID - [place] Care Teams Executive Manager Relationship Specialty Start Date End Date [facility] [address] [phone] PCP - General Family Medicine 09/19/24
--- OUTSIDE RECORDS SUMMARY | 2025-06-05 13:12 | XMS_ITS | Encounter Summary ---
Author Organization [employer] Address [address] [place] [address] Care Team Providers Care Cloth Tester Name Role Phone Rosalba Sutherland CURB SETTER HELPER Primary Care Provider Reason for Visit * Reason Comments Med Refill Encounter Details Date Type Department Care Team ([facility] st Contact Info) Description 09/17/2023 Refill [facility] MEDICINE 230 [place] [address] Yuriy Ibrahim MD 230 [place] [address] Opioid dependence, uncomplicated (CMS/HCC) Social History Tobacco [...] Description 08/24/2025 1:00 PM EST Office Visit [facility] MEDICINE 230 [place] [address] Yuriy Ibrahim MD 230 [place] [address] 10/12/2025 9:30 AM EST Office Visit [facility] OPTOMETRY [address] [place] [address] Tarka, Maya, OD [address] [place] [address] documented as of this encounter Visit Diagnoses Diagnosis Opioid dependence, uncomplicated (CMS/HCC) documented in this encounter Additional Health Concerns Assessment Noted Time PHQ-9 Depression Total Score: 11 023 10:08 AM EDT documented as of this encounter Care Teams Cloth Tester Relationship Specialty Start Date End Date Rosalba Sutherland FNP [address] [place] [address] PCP - General Family Medicine 06/04/22 documented as of this encounter
--- OUTSIDE RECORDS SUMMARY | 2025-06-05 13:12 | XMS_ITS | Encounter Summary ---
Author Organization [employer] Address [address] [place] [address] Care Team Providers Care Superintendent Ammunition Storage Name Role Phone Rosalba Sutherland Primary Care Provider [phone] Reason for Visit * Reason Comments Med Refill Encounter Details Date Type Department Care Team (Late st Contact Info) Description 05/28/2023 Refill [facility] MEDICINE [address] [place] [address] [phone] Yuriy Ibrahim MD [address] [place] [address] [phone] Opioid dependence, uncomplicated (CMS/HCC) Social History Tobacco Use Types Packs/Day Years Used Date Smoking Tobacco: Every Day Cigarettes Smokeless Tobacco: Never Alcohol Use Standard Drinks/Week Comments Never 0 (1 standard drink = 0.6 oz pur e alcohol) Depression Answer Date Recorded Patient Health Questionnaire-9 Score 11 05/14/2023 Depression Answer Date Recorded Patient Health Questionnaire-2 Score 2 05/14/2023 Sex and Gender Information Value Date Recorded Sex Assigned at Male 08/07/2022 10:38 AM EDT Legal Sex Male 10:38 AM EDT Gender Identity Male 08/07/2022 10:38 AM EDT Sexual Orientation Straight 08/07/2022 10 :38 AM EDT documented as of this encounter Plan of Treatment Upcoming Encounters Date Type Department Care Team (Late Contact Info) Description 08/24/2025 1:00 PM EST Office Visit [facility] MEDICINE [address] [place] [address] [phone] Yuriy Ibrahim MD [address] [place] [address] [phone] 10/12/2025 9:30 AM EST Office Visit [facility] OPTOMETRY [address] [place], [place] [phone] Maya Zaman, OD [address] [place] [address] documented as of this encounter Visit Diagnoses Diagnosis Opioid dependence, uncomplicated (CMS/HCC) documented in this encounter Additional Health Concerns Assessment Noted Time PHQ-9 Depression Total Score: 11 023 10:08 AM EDT documented as of this encounter Care Teams Superintendent Ammunition Storage Relationship Specialty Start Date End Date Rosalba Sutherland FNP [address] [place] [address] [phone] PCP - General Family Medicine 06/04/22 documented as of this encounter
--- OUTSIDE RECORDS SUMMARY | 2025-06-05 13:12 | XMS_ITS | Encounter Summary ---
Author Organization [employer] Address [address] 7[address] [place] [address] Care Team Providers Care Environmental Services Director Name Role Phone Rosalba Sutherland [facility] Primary Care Provider [phone] Encounter Details Date Type Department Care Team (Late st Contact Info) Description 10/18/2022 Abstract [facility] MEDICINE 230 [place] [address] Ena, [facility] 230 [place] [address] Social History Tobacco Use Types Packs/Day Years Used Date Smoking Tobacco: Every Day Cigarettes Smokeless Tobacco: Never Alcohol Use Standard Drinks/Week Comments Never 0 (1 standard drink = 0.6 oz pur e alcohol) Sex and Gender Information Value Date Recorded Sex Assigned at Male 08/07/2022 10:38 AM EDT Legal Sex Male 10:38 AM EDT Gender Identity Male 08/07/2022 10:38 AM EDT Sexual Orientation Straight 08/07/2022 10 :38 AM EDT COVID-19 Exposure Response Date Recorded In the last 10 days, have yo u been in contact with someone who was confirmed or suspected to have Coronavirus/COVID-19? No / Unsure 10/18/2022 8:49 AM EST documented as of this encounter Functional Status * Over the past 2 weeks, how often have you been bothered by any of the following problems? Question Answer Date of Assessment Author Little interest or pleasure in doing things Several days 10/18/2022 9:03 AM EST Erica yes, BELKYS oRth Feeling down, depressed, or hopeless Several days 10/18/2022 9:03 AM Ira Funes MA Patient Health Questionnaire-2 Score 2 10/18/2022 9:03 AM Ira Funes [place] * If you checked off any problems on this questionnaire so far, Question Answer Date of Assessment Author How difficult have these problems made it for you to do your work, take care of things at home, or get along with other people? Somewhat difficult 10/18/2022 9:03 AM Ira Funes MA * Over the past 2 weeks, how often have you been bothered by any of the following problems? Question Answer Date of Assessment Author Trouble falling or staying asleep, or sleeping too much Several days 10/18/2022 9:03 AM Ira Lipscomb MA Feeling tired or having little energy Several days 10/18/2022 9:03 AM Ira Funes MA Poor appetite or overeating Several days 10/18/2022 9: 03 AM Ira Funes MA Feeling bad about yourself - or that you are a failure or have let yourself or your family down Several days 10/18/2022 9:03 AM Ira Funes MA Trouble concentrating on things, such as reading the newspaper or watching television Several days 10/18/2022 9:03 AM Ira Funes MA Moving or speaking so slowly that other people could have noticed? Or the opposite - being so fidgety or restless that you have been moving around a lot more than usual. Several days 10/18/2022 9:03 AM Ira Funes MA Thoughts that you would be better off or hurting yourself in some way Several days 10/18/2022 9:03 AM Ira Funes MA Patient Health Questionnaire-9 Score 9 10/18/2022 9:03 AM Ira Funes MA documented as of this encounter Plan of Treatment Upcoming Encounters Date Type Department Care Team (Late st Contact Info) Description 08/24/2025 1:00 PM EST Office Visit [facility] MEDICINE 230 [place] [address] Yuriy Ibrahim MD 230 [place] [address] 10/12/2025 9:30 AM EST Office Visit [facility] OPTOMETRY [address] [place] [address] Maya Zaman, OD [address] [place], [place] [phone] documented as of this encounter Visit Diagnoses Not on filedocumented in this encounter Additional Health Concerns Assessment Noted Time PHQ-9 Depression Total Score: 9 10/18/19 23 9:03 AM EST documented as of this encounter Care Teams Environmental Services Director Relationship Specialty Start Date End Date Rosalba Sutherland FNP [address] [place] [address] PCP - General Family Medicine 06/04/22 documented as of this encounter
--- OUTSIDE RECORDS SUMMARY | 2025-06-05 13:12 | XMS_ITS | Clinical Summary ---
Author Organization [facility] Address [address] [place] [phone] Phone Care Team Providers Care Mold Washer Name Role Phone Pcp, Not Required Primary Care Provider Unavaila ble Allergies No known active allergies Social History Tobacco Use Types Packs/Day Years Used Date Smoking Tobacco: Never Smokeless Tobacco: Never Alcohol Use Standard Drinks/Week Comments Not Currently 0 (1 standard drink = 0.6 oz pur e alcohol) Education Answer Date Recorded Are you interested in more education? Not on peter e 02/02/2023 Are you concerned about learning? Not on file 02/02/2023 No 02/02/2023 No 02/02/2023 Digital Access Answer Date Recorded No 03/06/2023 No 03/06/2023 Reliable internet access at home? Not on file 03/06/2023 Device with a working camera? Not on file Sex and Gender Information Value Date Recorded Sex Assigned at Male 03/15/2020 2:50 AM EDT Legal Sex Male 2:43 AM EDT Gender Identity Male 03/15/2020 2:50 AM EDT Sexual Orientation Straight 03/15/2020 2: 50 AM EDT Last Filed Vital Signs Vital Sign Reading Time Taken Comments Blood Pressure 156/91 03/15/2020 2:59 AM EDT Pulse 45 03/15/2020 2:59 AM EDT Temperature 36.8 C (98.2 F) 03/15/2020 2:59 AM EDT Respiratory Rate 14 03/15/2020 2:59 AM EDT Oxygen Saturation 100% 03/15/2020 2:59 AM EDT Inhaled Oxygen Concentration - - Weight - - Height - - Body Mass Index - - Plan of Treatment Health Maintenance Due Date Last Done Comments Adult Td,Tdap Booster 1965 LIPID PANEL 1965 DEPRESSION SCREENING 1977 HEPATITIS C SCREENING 1983 HIV ONE-TIME SCREENING (18-6 5 YEARS) 1983 SMOKING STATUS SCREENING (On ce After 26 Yrs) 1991 COLOGUARD 2010 COLONOSCOPY 2010 COLORECTAL CANCER SCREENING 2010 FIT TEST 2010 FOBT 2010 SIGMOIDOSCOPY 2010 VIRTUAL COLONOSCOPY 2010 PNEUMOCOCCAL VACCINES (50+ y ears) (1 of 1 - PCV) 2015 ZOSTER VACCINES (1 of 2) 2015 COVID-19 VACCINE ( - 2023-2 5 season) 2024 INFLUENZA VACCINE (#1) 2025 RSV VACCINE (1 - 1-dose 75+ series) 02/02/2040 HEPATITIS A VACCINES Aged Out No long er eligible based on patient's age to complete this topic HIB VACCINES Aged Out No longer eligi ble based on patient's age to complete this topic MENINGOCOCCAL VACCINES (ACWY) Aged Out No longer eligible based on patient's age to complete this topic MENINGOCOCCAL VACCINES (B) Aged Out N o longer eligible based on patient's age to complete this topic Medical Devices Not on file Care Teams Mold Washer Relationship Specialty Start Date End Date Pcp, Not Required [address] [place] [phone] PCP - General 03/15/20 Additional Source Comments The information contained in this document represents components of the legal health record. It is not the complete legal health record.[facility]
--- OUTSIDE RECORDS SUMMARY | 2025-06-05 13:12 | XMS_ITS | Encounter Summary ---
Author Organization [employer] Address [address] [place] [address] Care Team Providers Care Aerodynamicist Name Role Phone Rosalba Sutherland RADIOLOGY INTERVENTIONAL PHYSICIAN Primary Care Provider [phone] Reason for Visit * Reason Comments Med Refill Encounter Details Date Type Department Care Team ([facility] st Contact Info) Description 01/07/2024 Refill [facility] MEDICINE [address] [place] [address] Yuriy Ibrahim MD 230 [place] [address] Opioid dependence, uncomplicated (CMS/HCC) Social History Tobacco [...] Description 08/24/2025 1:00 PM EST Office Visit [facility] MEDICINE 230 [place] [address] Yuriy Ibrahim MD [address] [place] [address] 10/12/2025 9:30 AM EST Office Visit [facility] OPTOMETRY [address] [place] [address] Tarka, Maya, OD [address] [place] [address] documented as of this encounter Visit Diagnoses Diagnosis Opioid dependence, uncomplicated (CMS/HCC) documented in this encounter Additional Health Concerns Assessment Noted Time PHQ-9 Depression Total Score: 11 023 10:08 AM EDT documented as of this encounter Care Teams Aerodynamicist Relationship Specialty Start Date End Date Rosalba Sutherland FNP [address] [place] [address] PCP - General Family Medicine 06/04/22 documented as of this encounter
--- OUTSIDE RECORDS SUMMARY | 2025-06-05 13:12 | XMS_ITS | Encounter Summary ---
Author Organization [employer] Address [address] [place] [address] Care Team Providers Care Funeral Location Manager Name Role Phone Rosalba Sutherland RESIDENT INSPECTOR Primary Care Provider [phone] Reason for Visit * Reason Comments Med Refill Encounter Details Date Type Department Care Team ([facility] st Contact Info) Description 04/28/2024 Refill [facility] MEDICINE 230 [place] [address] Yuriy Ibrahim MD [address] [place] [address] Opioid dependence, uncomplicated (CMS/HCC) Social History Tobacco [...] Description 08/24/2025 1:00 PM EST Office Visit [facility] MEDICINE 230 [place] [address] Yuriy Ibrahim MD [address] [place] [address] 10/12/2025 9:30 AM EST Office Visit [facility] OPTOMETRY [address] [place] [address] Tarka, Maya, OD [address] [place] [address] documented as of this encounter Visit Diagnoses Diagnosis Opioid dependence, uncomplicated (CMS/HCC) documented in this encounter Additional Health Concerns Assessment Noted Time PHQ-9 Depression Total Score: 11 023 10:08 AM EDT documented as of this encounter Care Teams Funeral Location Manager Relationship Specialty Start Date End Date Rosalba Sutherland FNP [address] [place] [address] PCP - General Family Medicine 06/04/22 documented as of this encounter
--- OUTSIDE RECORDS SUMMARY | 2025-06-05 13:12 | XMS_ITS | Encounter Summary ---
Demographics Address [address] [place] [address] Mobile Phone Home Phone Work Phone Preferred Language es Marital Status Unknown Mosque Affiliation Unknown Race Other Race Ethnic Group Unknown Author Organization [employer] Address [address] [place] [address] Care Team Providers Care Manufacturing Assembler Name Role Phone Rosalba Sutherland HAND WOVEN CARPET [employer] RUG MENDER Primary Care Provider [phone] Encounter Details Date Type Department Care Team (Latest Contact Info) Description 06/01/2025 Travel Social History Tobacco Use Types Packs/Day Years [...] Description 08/24/2025 1:00 PM EST Office Visit [facility] MEDICINE 230 [place] [address] Yuriy Ibrahim MD 230 [place] [address] 10/12/2025 9:30 AM EST Office Visit [facility] OPTOMETRY [address] [place] [address] Maya Zaman, OD [address] [place] [address] documented as of this encounter Visit Diagnoses Not on filedocumented in this encounter Additional Health Concerns Assessment Noted Time PHQ-9 Depression Total Score: 5 01/13/20 25 8:10 AM EDT documented as of this encounter Care Teams Manufacturing Assembler Relationship Specialty Start Date End Date Rosalba Sutherland FNP 230 [place] [address] PCP - General Family Medicine 06/04/22 documented as of this encounter
--- OUTSIDE RECORDS SUMMARY | 2025-06-05 13:12 | XMS_ITS | Encounter Summary ---
Author Organization [employer] Address [address] [place] [address] Care Team Providers Care Visual Merchandiser Name Role Phone [place] [facility] Primary Care Provider [phone] Reason for Visit * Reason Comments Med Refill Encounter Details Date Type Department Care Team ([facility] st Contact Info) Description 11/17/2024 Refill [facility] MEDICINE 230 [place], [place] [phone] [place] [facility] 230 [place] [address] COPD, severe (CMS/HCC) Social History Tobacco Use Types Packs/Day Years Used Date Smoking Tobacco: Every Day Cigarettes Smokeless Tobacco: Never Alcohol Use Standard Drinks/Week Comments Never 0 (1 standard drink = 0.6 oz pur e alcohol) Depression Answer Date Recorded Patient Health Questionnaire-9 Score 2 09/15/2024 Patient Health Questionnaire-9 Score 2 09/15/2024 Last PHQ-9: Questionnaire Data Not on file 1 11/16/2023 Housing Stability Answer Date Recorded What is [...] got money to buy more: Never True 06/16/2024 Within the past 12 months,th e food you bought just didn't last and you didn't have enough money to get more: Never True 06/2024 Transportation Answer Date Recorded In the past [...] Date Recorded Patient Health Questionnaire-2 Score 2 09/15/2024 Internet Access Answer Date Recorded Internet Access [...] Description 08/24/2025 1:00 PM EST Office Visit [facility] MEDICINE [address] [place] [address] Yuriy Ibrahim MD [address] [place] [address] 10/12/2025 9:30 AM EST Office Visit [facility] OPTOMETRY [address] [place] [address] Maya Zaman, OD [address] [place] [address] documented as of this encounter Visit Diagnoses Diagnosis COPD, severe (CMS/HCC) documented in this encounter Additional Health Concerns Assessment Noted Time PHQ-9 Depression Total Score: 2 09/15/20 24 9:54 AM EST documented as of this encounter Care Teams Visual Merchandiser Relationship Specialty Start Date End Date Rosalba Sutherland FNP [address] [place] [address] PCP - General Family Medicine 06/04/22 documented as of this encounter
--- OUTSIDE RECORDS SUMMARY | 2025-06-05 13:12 | XMS_ITS | Encounter Summary ---
Author Organization [employer] Address [address] [place] [address] Care Team Providers Care Bulk Sugar Handler Name Role Phone Rosalba Sutherland Primary Care Provider [phone] Reason for Visit * Reason Comments Med Refill Encounter Details Date Type Department Care Team (Late st Contact Info) Description 04/02/2023 Refill [facility] MEDICINE [address] [place] [address] Yuriy Ibrahim MD [address] [place], [place] [phone] Opioid dependence, uncomplicated (CMS/HCC) Social History Tobacco [...] suspected to have Coronavirus/COVID-19? No / Unsure 03/19/2023 10:59 AM EDT documented as of this encounter Plan of Treatment Upcoming Encounters Date Type Department Care Team (Late st Contact Info) Description 08/24/2025 1:00 PM EST Office Visit [facility] MEDICINE [address] [place] [phone] Yuriy Ibrahim MD [address] [place] [address] 10/12/2025 9:30 AM EST Office Visit [facility] OPTOMETRY [address] [place], [place] [phone] Juan Carlosjordyn Maya, OD [address] [place], [place] [phone] documented as of this encounter Visit Diagnoses Diagnosis Opioid dependence, uncomplicated (CMS/HCC) documented in this encounter Additional Health Concerns Assessment Noted Time PHQ-9 Depression Total Score: 16 023 9:07 AM EDT documented as of this encounter Care Teams Bulk Sugar Handler Relationship Specialty Start Date End Date Rosalba Sutherland FNP [address] [place], [place] [phone] PCP - General Family Medicine 06/04/22 documented as of this encounter
--- OUTSIDE RECORDS SUMMARY | 2025-06-05 13:12 | XMS_ITS | Encounter Summary ---
Author Organization [employer] Address [address] [place] [address] Care Team Providers Care Credit Collections Rep Name Role Phone Rosalba Sutherland NETWORK DESKTOP SUPPORT SPECIALIST Primary Care Provider [phone] Reason for Visit * Reason Comments Med Refill Encounter Details Date Type Department Care Team ([facility] st Contact Info) Description 10/13/2024 Refill [facility] [address] [place] [address] Yuriy Ibrahim MD [address] [place] [address] Opioid dependence, uncomplicated (CMS/HCC) Social History Tobacco [...] your housing situation today? I have johnathan dakota 06/16/[address] you li [...] Description 08/24/2025 1:00 PM EST Office Visit [facility] [address] [place] [address] Yuriy Ibrahim MD [address] [place] [address] 10/12/2025 9:30 AM EST Office Visit [facility] [address] [place] [address] Maya Zaman, OD [address] [place] [address] documented as of this encounter Visit Diagnoses Diagnosis Opioid dependence, uncomplicated (CMS/HCC) documented in this encounter Additional Health Concerns Assessment Noted Time PHQ-9 Depression Total Score: 2 09/15/20 24 9:54 AM EST documented as of this encounter Care Teams Credit Collections Rep Relationship Specialty Start Date End Date Rosalba Sutherland FNP [address] [place] [id number] PCP - General Family Medicine 06/04/22 documented as of this encounter
--- OUTSIDE RECORDS SUMMARY | 2025-06-05 13:12 | XMS_ITS | Encounter Summary ---
Author Organization [employer] Address [address] [place] [address] Care Team Providers Care Prospecting Driller Name Role Phone Rosalba Sutherland MAINTENANCE REPRESENTATIVE Primary Care Provider Encounter Details Date Type Department Care Team (Late Contact Info) Description 10/24/2022 Orders Only [facility] [address] [place], [place] [phone] Antionette Christine LPN Social History Tobacco Use Types Packs/Day Years [...] AM EST documented as of this encounter Plan of Treatment Upcoming Encounters Date Type Department Care Team (Late Contact Info) Description 08/24/2025 1:00 PM EST Office Visit [facility] [address] [place] [address] Yuriy Ibrahim MD [address] [place] [address] 10/12/2025 9:30 AM EST Office Visit [facility] [address] [place] [address] Maya Zaman, OD [address] [place] [address] documented as of this encounter Visit Diagnoses Not on filedocumented in this encounter Additional Health Concerns Assessment Noted Time PHQ-9 Depression Total Score: 9 10/18/19 23 9:03 AM EST documented as of this encounter Care Teams Prospecting Driller Relationship Specialty Start Date End Date Rosalba Sutherland FNP [address] [place] [id number] PCP - General Family Medicine 06/04/22 documented as of this encounter
--- OUTSIDE RECORDS SUMMARY | 2025-06-05 13:12 | XMS_ITS | Encounter Summary ---
Author Organization [employer] Address [address] [place] [address] Care Team Providers Care Institute Scientist Name Role Phone [facility] Primary Care Provider [phone] Reason for Visit * Reason Comments Med Refill Encounter Details Date Type Department Care Team ([facility] Contact Info) Description 10/23/2022 Refill [facility] [address], [place] [phone] [facility] [address] [place] [address] Social History Tobacco Use Types Packs/Day Years [...] AM EST documented as of this encounter Miscellaneous Notes * Telephone Encounter - [facility] - 10/24/2022 7:58 PM EST Medication refused due to failing protocol. Requested Prescriptions Pending Prescriptions Disp Refills Proventil HFA 108 (90 Base) MCG/ACT inhaler [Pharmacy Med Name: Proventil HFA 90 mcg/actuation aerosol inhaler] 6.7 g 2 Sig: INHALE 2 PUFFS BY MOUTH EVERY 4 TO 6 HOURS NEEDED Short Acting Inhaled Beta-Agonists Protocol Passed - 10/24/2022 2:36 PM Passed - Visit with relevant provider in past 9 months or upcoming 90 days Recent Visits Date Type Provider Dept 10/18/22 Office Visit JAVIER Levine [facility] Medicine Showing recent visits within past 270 days and meeting all other requirements Future Appointments Date Type Provider Dept 11/01/22 Appointment [facility] BLUE TEAM NURSE [facility] Medicine 12/19/22 Appointment Concha Grayson RN [facility] Medicine Showing future appointments within next 90 days and meeting all other requirements Buprenorphine HCl-Naloxone HCl (Suboxone) 8-2 MG SL film 30 Film Sig: Place 1 Film under the tongue every 12 (twelve) hours. There is no refill protocol information for this order documented in this encounter Plan of Treatment Upcoming Encounters Date Type Department Care Team (Late st Contact Info) Description 08/24/2025 1:00 PM EST Office Visit [facility] MEDICINE [address] [place] [address] Yuriy Ibrahim MD [address] [place] [address] 10/12/2025 9:30 AM EST Office Visit [facility] OPTOMETRY [address] [place] [address] Maya Zaman, OD [address] [place] [address] documented as of this encounter Visit Diagnoses Not on filedocumented in this encounter Additional Health Concerns Assessment Noted Time PHQ-9 Depression Total Score: 9 10/18/19 9:03 AM EST documented as of this encounter Care Teams Institute Scientist Relationship Specialty Start Date End Date Rosalab Sutherland FNP [address] [place] [address] PCP - General Family Medicine 06/04/22 documented as of this encounter
--- OUTSIDE RECORDS SUMMARY | 2025-06-05 13:12 | XMS_ITS | Clinical Summary ---
Demographics Address [address] [place] [address] Mobile Phone Home Phone Work Phone Preferred Language es Marital Status Unknown Advent Affiliation Unknown Race Other Race Ethnic Group Unknown Author Organization [employer] Address [address] [place] [address] Care Team Providers Care Ble[employer] Name Role Phone Rosalba Sutherland WARD SECRETARY Primary Care Provider [phone] Allergies No known active allergies Medications * This document contains information received from the source organization and may not represent a complete record from that organization. naloxone (Narcan) 4 mg/0.1 mL nasal spray Administer 0.1 mL into affected nostril(s). 02/29/20 22 Active Blood Pressure kit Check Blood pressure once to twice a day as directed Active omeprazole (PriLOSEC) [address] capsuleIndicatio ns:Dyspepsia TAKE 1 CAPSULE BY MOUTH EVERY DAY BEFORE A MEAL 90 capsule 1 10/18/19 23 Active albuterol (2.5 MG/3ML) 0.083% nebulizer solutionIndicati ons:Mild intermittent asthma, unspecified whether complicated INHALE 1 AMPULE USING A NEBULIZER FOUR TIMES DAILY NEEDED 90 mL 1 11/28/19 23 Active naproxen (EC Naprosyn) 375 MG EC tablet TAKE 1 TABLET BY MOUTH TWICE DAILY 01/16/20 23 Active olmesartan (BENIcar) 20 MG tablet TAKE 1/2 TABLET BY MOUTH EVERY DAY 01/13/20 23 Active cyanocobalamin (Vitamin B-12) 1000 MCG tablet Patient reports purchasing OTC- take as directed Active Cholecalciferol (Vitamin D) 125 MCG (5000 UT) capsule Patient reports purchasing OTC- take as directed Active omega-3 acid ethyl esters (Lovaza) 1 g capsule Patient reports purchasing OTC- take as directed Active magnesium 250 MG tablet Patient reports purchasing OTC- take as directed Active escitalopram (Lexapro) 5 MG tablet Take 1 tablet (5 mg) by mouth Once daily. 30 tablet 2 09/25/20 23 Active fluticasone-salm eterol (Advair) 230-21 MCG/ACT inhalerIndicatio ns:COPD, severe (CMS/HCC) Inhale 2 puffs in the morning and at bedtime. Rinse mouth with water after use to reduce aftertaste and incidence of candidiasis. Do not swallow. 12 g 11 06/16/20 24 2024 Active albuterol (Ventolin HFA) 108 (90 Base) MCG/ACT inhalerIndicatio ns:COPD, severe (CMS/HCC) INHALE 2 PUFFS BY MOUTH EVERY 4 TO 6 HOURS NEEDED 18 g 2 09/19/20 24 Active triamcinolone (Kenalog) 0.025 % creamIndications :Dry skin dermatitis MIX TUBE WITH 16 OUNCES OF cerave DIRECTED. APPLY from NECK TO TOES ONCE DAILY DIRECTED 80 g 1 12/01/19 25 Active amLODIPine (Norvasc) 10 MG tabletIndication s:Essential hypertension TAKE 1 TABLET BY MOUTH EVERY DAY 90 tablet 1 03/09/20 25 Active Eyelid Cleansers (OcuSoft Eyelid Cleansing) padsIndications: Blepharitis of both eyes, unspecified eyelid, unspecified type Clean upper and lower eyelids with one wipe twice a day 100 each 5 05/04/20 25 Active neomycin-polymyx in-dexAMETHasone 0.1 % ointmentIndicati ons:Hordeolum internum of left lower eyelid Apply to left upper eyelid twice a day for 7 days. 3.5 g 1 05/04/20 25 Active Buprenorphine HCl-Naloxone HCl (Suboxone) 8-2 MG SL filmIndications: Opioid dependence, uncomplicated (CMS/HCC) Place 1 Film under the tongue 3 times daily. 84 Film 2 05/26/20 25 2024 Active Spiriva Respimat 2.5 MCG/ACT inhalerIndicatio ns:COPD, severe (CMS/HCC) INHALE 2 PUFFS BY MOUTH EVERY DAY, RINSE MOUTH AFTER USING. 4 g 2 05/27/20 25 Active Spiriva Respimat 2.5 MCG/ACT inhalerIndicatio ns:COPD, severe (CMS/HCC) INHALE 2 PUFFS BY MOUTH ONCE DAILY 4 g 2 01/08/20 25 2024 Discontinued Buprenorphine HCl-Naloxone HCl (Suboxone) 8-2 MG SL filmIndications: Opioid dependence, uncomplicated (CMS/HCC) Place 1 Film under the tongue 3 times daily. 84 Film 1 03/29/20 25 2024 Discontinued(R eorder (will not trigger notification to Pharmacy)) amoxicillin-clav ulanate (Augmentin) 875-125 MG tabletIndication s:Hordeolum internum of left lower eyelid Take 1 tablet by mouth 2 times daily for 7 days. 14 tablet 05/04/20 25 2024 Active Problems Problem Noted Date Diagnosed Date Complete edentulism 01/29/2025 Atrophy of mandible 01/29/2025 Hepatitis C virus infection cured after antiviral drug therapy 03/17/2024 Major depressive disorder, s shila episode with psychotic features 05/14/2023 Assessment & Plan (05/14/2023 11:01 AM EDT): Depressed, anxious, poor sleep, mild mood-congruent hallucinations: someone calling him; seeing things fleetingly that are not there when he looks again. Situational stressors: Unemployed, financial problems. ?Cognitive limitations, forgetful. Support from cousin with whom he lives. 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 Denies prior hx mental health problems or treatment. He will be started on SSRI: Lexapro 5 mg once daily, reviewed that medication needed to be taken daily in order to be effective, and would not notice improvement immediately so be patient. If he experiences any significant problems to call us. Otherwise F/U in 1 month. He agrees with the plan. Severe episode of recurrent major depressive disorder, without psychotic features 02/20/2023 Overview (02/25/2023): [facility] clinician was contacted and completed BE for patient during office visit. Determined safe to return home with close follow up. Patient with crisis and [facility] contact information Referred to [facility] Assessment & Plan (02/20/2023 3:56 PM EDT): Assessment and Plan: Jose Ramon was engaged with active reflective listening and open-ended questions. Assessed symptoms, risks, and social supports with direct questions. Discussed current symptoms intensity and frequency. Emotions were normalized and validated. He identified his cousin as protective factor. Provided education about Crisis and [facility], but he denies call at the moment. He took information with him. Discussed OP therapy and medication management he agreed to both referrals. Discussed CHW services he also agreed to referral. Provided education around integrated medicine and the options of follow up BE's as needed. Provided contact information should questions or concerns arise. Plan: Jose Ramon will engage in MH services to learn effective coping skills to manage his sxs. He will be also engage with CHW to connect him with resources. Referral for Ind. Therapy and Med. Management will be place. Patient with lack of motivation, low mood, feeling hopeless, lack of energy, low appetite, trouble concentrating, thoughts, feeling anxious, persistent worry, trouble relaxing, irritability, fear that something bad would happen. He denies SI, HI, or self-harm at this time. Living with his cousin for a year, has no income, loss his job a year a go and has not been able to find another due to language barrier. Patient will benefit from Ind. Therapy and Medication Management. At this time Jose Ramon [place] meets criteria for Visit Diagnoses: Problem List Items Addressed This Visit Other Depression with suicidal ideation Patient ready to address current needs Yes Strengths include Jose Ramon is willing to engage in support and is in action stage of change. PLAN: 1. Follow up with [facility]: Recommended for follow-up: 03/12/23 1pm 2. Patient goal is to be able to find a job, and to engage in services to learn to manage his sxs. 3. Behavioral Recommendations a. Ind. Therapy b. Medication Management c. CHW referral to connect him with services Hepatitis C virus infection without hepatic coma 02/12/2023 Assessment & Plan (03/19/2023 5:08 PM EDT): Patient previously did not respond to HCV tx team outreach. Reports feeling ready to move forward with treatment today Will reach out to HCV jose Assessment & Plan (02/25/2023 9:35 PM EDT): Referred to [facility] hep C team History of smoking 30 or more pack years 023 Latent tuberculosis 10/28/2022 Overview (10/28/2022): Neg CXR 03/2021 Pt did not complete previous tx course-referred to [facility] TB clinic 08/2022 Chronic groin pain 10/28/2022 Overview (10/28/2022): Remote hx of machine accident that resulted in injury to right testicle Referred to urology 09/2022 Healthcare maintenance 10/28/2022 Overview (03/19/2023): C-Scope: Discuss at f/u PSA: 0.4 03/2023 Vision Exam: 02/2023 [facility], referred to retinal specialist Dental Care: Discuss at follow up Assessment & Plan (03/19/2023 5:10 PM EDT): Pt declines all vaccines today Agrees to RN follow up for Hep B, Hep A and PCV 20 vaccines Assessment & Plan (11/22/2022 10:15 PM EST): Complete labs today Declines all vaccines-phobia of needle. States will complete at follow up Referral placed to low dose CT program COPD, severe 10/20/2022 Overview (06/16/2024): Spiriva Advair Albuterol PFTs from 09/2022 with severe COPD Followed by pulmonology at [facility]. Referred to lung CT screening program Assessment & Plan (03/19/2023 5:05 PM EDT): Followed up scheduled with pulmonology Assessment & Plan (10/28/2022 1:48 PM EST): Continue current regimen Follow up with pulmonology as scheduled Encouraged smoking cessation Contact HC if sx worsen Opioid dependence, uncomplicated 10/18/2022 Overview (10/28/2022): Stable on suboxone maintenance therapy Followed by [facility] OBAT program Tobacco dependence syndrome 10/18/2022 Assessment & Plan (03/19/2023 5:03 PM EDT): Has patches and lozenges at home Declines pharmacy referral for cessation at this time Essential hypertension 10/18/2022 Overview (03/19/2023): Amlodipine 10mg daily Olmesartan 5mg daily C/b hypertensive retinopathy-followed by [facility] optometry Maintenance: BMP: 11/2022 Lipid Panel: 03/2023 ASCVD Risk: Calculate pending updated labs EKG: NSR 08/2022 low-sodium diet (goal: <2g/day) and heart healthy diet such as DASH to reduce BP and prevent ASCVD. Home BP monitoring 1-2 x day with goal of <140/90. Seek immediate medical attention for chest pain, palpitations, SOB, syncope, or sudden changes in mental status. Do not change or discontinue current prescriptions without first consulting health care provider Assessment & Plan (03/19/2023 5:04 PM EDT): BP within goal Continue current regimen Assessment & Plan (02/25/2023 9:44 PM EDT): BP elevated in office Patient did not take medications today No CP, SOB, blurred vision, h/a Continue current regimen. Assessment & Plan (11/22/2022 10:13 PM EST): Pt will complete previously ordered labs today BP elevated in office, pt states he did not take BP medications today, will take immediately at home Pending BMP results plan to increase olmesartan to 10mg Assessment & Plan (10/28/2022 1:49 PM EST): START olmesartan 5mg once daily Patient to complete blood work today Branch retinal vein occlusion of left eye 2021 Overview (09/07/2022): branch retinal vein occlusion (BRVO) left eye (OS) first diagnosed 06/08/22 in a patient with history of hypertension. Suspicion of disc neovascularization with low intraocular pressure (IOP) left eye (OS) today. Some resolution of midperipheral hemes superior temporally. Patient referred to retinal specialist for evaluation and is Rescheduled for 09/22/2022. Emphasized importance of keeping appointment and following up with PCP. Will monitor at follow up in 6 months or as indicated by retinal consultation. Resolved Problems Problem Noted Date Diagnosed Date Resolved Date Depression with suicidal ideation 02/20/2023 02/20/2023 Mild intermittent asthma 08/12/2021 Overview (10/18/2022): Well controlled Assessment & Plan (10/18/2022 5:55 PM EST): Continue as ... Encounters Date Type Department Care Team Description 06/03/2025 Telephone [facility] [address] [place] [address] Concha Grayson RN TB reportin form (TB reporting form submitted via internet today.) 06/01/2025 1:00 PM EDT Telemedicine [facility] [address] [place] [address] Yuriy Ibrahim MD Opioid dependence, uncomplicated (CMS/HCC) (Primary Dx) 06/01/2025 Travel 05/27/2025 Refill [facility] [address] [place] [address] Rosalba Sutherland FNP COPD, severe (CMS/HCC) 05/25/2025 Refill [facility] [address] [place] [address] Concah Grayson RN Opioid dependence, uncomplicated (CMS/HCC) 05/04/2025 1:00 PM EDT Office Visit [facility] [address] [place] [address] Rasta, Constance, OD Hordeolum internum of left lower eyelid (Primary Dx); Blepharitis of both eyes, unspecified eyelid, unspecified type 05/04/2025 Travel 04/14/2025 Telephone [facility] [address] [place] [address] Rosalba Sutherland FNP Stable Lab Letter 04/13/2025 Telephone [facility] [address] [place] [address] Rosalba Sutherland FNP Care Coordination 04/13/2025 Results Follow-Up [facility] [place] [address] Rosalba Sutherland FNP Comprehensive Metabolic Panel, CBC auto differential, Lipid Panel, Standard, PSA,Total 04/06/2025 Orders Only [facility] [address] Yuriy Ibrahim MD 04/03/2025 11:15 AM EDT Office Visit [facility] [address] [place], [place] [address] [address] Rosalba Sutherland FNP COPD, severe (CMS/HCC) (Primary Dx); Essential hypertension; Dyspnea, unspecified type 04/03/2025 Travel 04/02/2025 [address] [place] [address] Rosalba Sutherland FNP Chart prep 04/01/2025 Patient Outreach [facility] [address] [place] [phone] Rosalba Sutherland FNP 04/01/2025 Patient Outreach [address] [address] Rosalba Sutherland FNP Care Coordination ([facility] f/u) 04/01/2025 Patient Outreach [address] [address] Rosalba Sutherland FNP Care Management ([facility]- f/u call) 03/27/[address] [address] Concha Grayson, RN Opioid dependence, uncomplicated (CMS/HCC) 03/27/[address] [address] Rosalba Sutherland FNP No Show 03/25/[address] [address] Rosalba Sutherland FNP CHART PREP 03/18/2025 Patient Outreach [address] [address] Rosalba Sutherland FNP Care Management ([facility]- f/u call) 03/18/2025 Patient Outreach [facility] [address] [place] [address] Mariella Nuñez Pre-visit Planning ([facility] screening completed on 01/20/2025) 03/08/2025 Refill [facility] [address] [place] [address] [facility] Essential hypertension 03/05/2025 Patient Outreach [facility] [address] [place] [address] [facility] Care Management (C3- f/u call) from Last 3 Months Immunizations Immunization Administration Dates Next Due Hep A, Adult 10/15/2023,04/16/2023 Hep B, adult 10/15/2023,05/14/2023,04/16/2023 Influenza injectable quadriv alent preservative free 08/12/2021 Moderna Covid-19 Vaccine 6+ Bivalent 12/26/2022 Pneumococcal Conjugate PCV 20 04/16/2023 Tdap 08/12/2021 Social History Tobacco Use Types Packs/Day Years Used Date Smoking Tobacco: Every Day Cigarettes Smokeless Tobacco: Never Tobacco Cessation:Ready to Q uit: Not Asked; Counseling Given: Not Answered Alcohol Use Standard Drinks/Week Comments Never 0 [...] Orientation Straight 08/07/2022 10 :38 AM EDT Last Filed Vital Signs Vital Sign Reading Time Taken Comments Blood Pressure 120/76 04/03/2025 10:43 AM EDT Pulse 60 04/03/2025 10:43 AM EDT Temperature 36.9 C (98.4 F) 04/03/2025 10:43 AM EDT Respiratory Rate 14 04/03/2025 10:43 AM EDT Oxygen Saturation 95% 12/22/2024 8:48 AM EDT Inhaled Oxygen Concentration - - Weight 61.8 kg (136 lb 3.2 oz) 04/03/2025 10:43 AM EDT Height 180.3 cm (5' 11 ) 04/03/2025 10:43 AM EDT Body Mass Index 19 04/03/2025 10:43 AM EDT Plan of Treatment Upcoming Encounters Date Type Department Care Team (Late st Contact Info) Description 08/24/2025 1:00 PM EST Office Visit [facility] [address] [place] [address] Yuriy Ibrahim MD [address] [place] [address] 10/12/2025 9:30 AM EST Office Visit [facility] [address] [place] [address] Maya Zaman, OD [address] [place] [address] Health Maintenance Due Date Last Done Comments CT Colonography 1965 Colonoscopy 1965 Colorectal Cancer Screening 1965 Dental Prophylaxis 1965 Dental X-Ray: Bitewings 1965 FIT DNA/Cologuard 1965 FIT 1965 FOBT 1965 Sigmoidoscopy 1965 Zoster Vaccines (1 of 2) 2015 COVID-19 Vaccine ( season) 2024 12/26/2022, 04/04/2021, 03/08/2021 RSV Patients and Patients Aged 60 years or older (1 - Risk 60-74 years 1-dose series) 2025 Influenza Vaccine (#1) 2025 08/12/2021 Dental Oral Exam 08/01/2025 01/29/2025 Depression Screening 01/12/2026 01/12/2025, 01/13/20 SDOH Screening 04/01/2026 04/01/2025 Alcohol/Substance Use Screening 04/03/2026 04/03/2025 Disability Screening 04/03/2026 04/03/2025 Tobacco Screening 06/01/2026 06/01/2025 Dental X-Ray: Full Mouth 01/31/2028 01/29/2025 Lipid Panel 04/03/2030 04/03/2025, 06/0 02/2023, 11/20/2022 DTaP/Tdap/Td Vaccines (2 - Td or Tdap) 08/12/2031 08/12/2021 Pneumococcal Vaccine: 50+ Years Completed 04/16/2023 Hepatitis A Vaccines Completed 10/15/2023, 04/16/20 23 Hepatitis B Vaccines Completed 10/15/2023, 05/14/2023, 04/16/2023 HIV Screening Completed 04/03/2025, 060 02/2023, 11/20/2022, Additional history exists HIB Vaccines Aged Out No longer eligi [...] patient's age to complete this topic Meningococcal Vaccine Aged Out No scott vladislav eligible based on patient's age to complete this topic RSV under 20 months Aged Out No longe r eligible based on patient's age to complete this topic Rotavirus Vaccines Aged Out No longer eligible based on patient's age to complete this topic Procedures Procedure Name Priority Date/Time Associated Diagnosis Comments HEPATITIS C VIRAL RNA, QUANTITATIVE, REAL-TIME PCR Routine 04/06/2025 10:14 AM EDT T-SPOT(R).TB Routine 04/03/2025 10:14 AM EDT Opioid dependence, uncomplicated (CMS/HCC) SYPHILIS SCREEN Routine 04/03/2025 10:14 AM EDT Opioid dependence, uncomplicated (CMS/HCC) HIV 1/2 ANTIGEN/ANTIBODY, FOURTH GENERATION W/RFL Routine 04/03/2025 10:14 AM EDT Opioid dependence, uncomplicated (CMS/HCC) HEPATITIS C AB W/REFL TO HCV RNA, QN, PCR Routine 04/03/2025 10:14 AM EDT Opioid dependence, uncomplicated (CMS/HCC) HEPATIC FUNCTION PANEL Routine 04/03/2025 10:14 AM EDT Opioid dependence, uncomplicated (CMS/HCC) PSA, TOTAL Routine 04/03/2025 10:14 AM EDT Healthcare maintenance LIPID PANEL, STANDARD Routine 04/03/2025 10:14 AM EDT Essential hypertension CBC WITH AUTO DIFFERENTIAL Routine 04/03/2025 10:14 AM EDT Essential hypertension COMPREHENSIVE METABOLIC PANEL Routine 04/03/2025 10:14 AM EDT Essential hypertension PANORAMIC RADIOGRAPHIC IMAGE Routine 01/29/2025 1:30 PM EDT COMPREHENSIVE ORAL EVALUATION - NEW OR ESTABLISHED PATIENT Routine 01/29/2025 1:30 PM EDT from Last 3 Months or Most Recently Relevant to Health Maintenance Results * Hepatitis C Viral RNA, Quantitative, Real-Time PCR (04/06/2025 10:14 AM EDT) [facility] Hepatitis C Viral Load <15 NOT DETECTED NOT DETECTED IU/mL [facility] HCV Log PCR <1.18 NOT DETECTED NOT DETECTED Log IU/mL [facility] Comment:For additional infor rosana, please refer tohttp://education.GTxcel/faq/OIK42f7(This link is being provided for informational/educational purposes only.)THIS TEST WAS PERFORMED AT:[employer] [place] [phone] STILL MD 04/06/2025 10:1 4 AM EDT 04/06/2025 4:03 PM EDT us Yuriy Ibrahim MD LAB BLOOD ORDERABLES Final Resul t Performing Organization Address [facility] de Phone Number [facility] [address] [place] [phone] * Syphilis Screen (04/03/2025 10:14 AM EDT) [facility] Syphilis Screen Nonreactive Nonreactive [facility] Blood 04/03/2025 10:1 4 AM EDT 04/03/2025 11:06 AM EDT us Yuriy Ibrahim MD LAB BLOOD ORDERABLES Final Resul t Performing Organization Address [facility] Phone Number [facility] [address] [place] [phone] * (ABNORMAL) T-SPOT??.TB (04/03/2025 10:14 AM EDT) [facility] T Spot TB Positive( A) Negative [facility] Comment: Diagnosing or excluding tuberculosis (TB) disease andassessing the probability of latent TB infection (LTBI)requires a combination of epidemiological, historical,medical and diagnostic findings that should be takeninto consideration when interpreting T-SPOT.TB testresults. A positive test result does not rule in activeTB disease caused by Mycobacterium tuberculosis(M. tuberculosis); active TB disease should beconfirmed by other tests such as sputum smear andculture, PCR, and chest radiography.Uncommonly, a positive T-SPOT.TB result may be due toinfection with other Mycobacterium species includingM. kansasii, M. szulgai, M. gordonae, or M. marinum.Alternative tests would be required if these infectionsare suspected.The T-SPOT.TB test is qualitative and results arereported as positive, borderline, or negative, giventhat the test controls perform as expected. In linewith the Centers for Disease Control and Prevention's2010 recommendation to report quantitative measurementsalongside the qualitative result, the laboratoryprovides spot counts for informational purposes only.The T-SPOT.TB test should not be interpreted as aquantitative test. TS PANEL A 8 [facility] TS PANEL B 14 [facility] Negative Control Passed [facility] Positive Control Passed [facility] Comment:For additional infor matalessandra, please refer tohttp://education.GTxcel/faq/RUF216(This link is being provided for informational/educational purposes only.)REPORT COMMENT:[facility] AT:[employer] [id number] [place] [id number] GARAY MD,PHD 04/03/2025 10:1 4 AM EDT 04/03/2025 11:08 AM EDT us Yuriy Ibrahim MD LAB BLOOD ORDERABLES Final Resul t [facility] [address] [place] [phone] [phone] * (ABNORMAL) CBC auto differential (04/03/2025 10:14 AM EDT) White Blood Count 7.4 4.8 - 10.8 X10*3/uL [facility] Red Blood Count 4.79 4.60 - 5.80 X10*6/uL [facility] Hemoglobin 14.8 14.0 - 18.0 g/dl [facility] Hematocrit 43.9 42.0 - 52.0 % [facility] Mean Corpuscular Volume 91.6 80.0 - 98.0 fL [facility] Mean Corpuscular Hemoglobin 30.9 27.0 - 33.0 pg [facility] Mean Corpuscular HGB Conc 33.7 31.0 - 36.0 g/dl [facility] Red Cell Distribution Width 13.5 11.0 - 16.0 % [facility] Platelet Count 248 160 - 400 X10*3/uL [facility] Mean Platelet Volume 11.2 9.4 - 12.4 fL [facility] Neutrophils Percent Auto 74.5(H) 45 - 73 % [facility] Imm Gran Pct Auto 0.4 0.0 - 0.4 % [facility] Lymphocytes Percent Auto 16.8(L) 20 - 40 % [facility] Monocytes Percent Auto 5.1 2 - 11 % [facility] Eosinophils Percent Auto 2.7 0 - 4 % [facility] Basophils Percent Auto 0.5 0 - 2 % [facility] NRBC Pct Auto 0.0 0.0 - 0.2 /100WBC [facility] Neutrophils Absolute Auto 5.5 2.0 - 8.3 x10*3/uL [facility] Imm Gran Abs Auto 0.03 0.00 - 0.03 X10*3/uL [facility] Lymphocytes Absolute Auto 1.3 1.2 - 4.9 X10*3/uL [facility] Monocytes Absolute Auto 0.4 0.1 - 1.2 X10*3/uL [facility] Eosinophils Absolute Auto 0.2 0.0 - 0.4 X10*3/uL [facility] Basophils Absolute Auto 0.0 0.0 - 0.2 X10*3/uL [facility] NRBC Abs Auto 0.000 0.0 - 0.012 X10*3/uL [facility] Blood Venous blood specimen / Unknown 04/03/2025 10:14 AM EDT 04/03/2025 11:08 AM EDT [facility] LAB BLOOD ORDERABLES Final Re sult Performing Organization Address City/[facility]/ZIP Co de Phone Number [facility] [address] [place] [phone] * (ABNORMAL) Hepatitis C Antibody with Reflex to HCV, RNA, Quantitative, Real- Time PCR (04/03/2025 10:14 AM EDT) Hepatitis C Antibody Reactive( A) Nonreactive [facility] Comment:Presumptive evidence of antibodies to HCV. Blood Venous blood specimen / Unknown 04/03/2025 10:14 AM EDT 04/03/2025 11:06 AM EDT Yuriy Ibrahim MD LAB BLOOD ORDERABLES Final Resul t Performing Organization Address [facility] Co de Phone Number [facility] [address] [place] [phone] * HIV-1/2 Antigen and Antibodies, Fourth Generation, with Reflexes (04/03/2025 10:14 AM EDT) Pathologist [facility] HIV AB/AG Nonreactive Nonreactive [facility] Comment:HIV-1 p24 Ag and/or HIV-1/HIV-2 Ab not detected.A test result that is nonreactive does not exclude thepossibility of exposure to or infection with HIV-1 and/orHIV-2. Nonreactive results in this assay for individualswith prior exposure to HIV-1 and/or HIV-2 may be due toantigen and antibody levels that are below the limit ofdetection of this assay.The [employer] HIV Ag/Ab Combo assay result andsupplemental assay results should be interpreted inconjunction with the patient's clinical presentation,history and other laboratory results. If the results areinconsistent with clinical evidence, additional testing issuggested to confirm the result. Blood Venous blood specimen / Unknown 04/03/2025 10:14 AM EDT 04/03/2025 11:06 AM EDT Yuriy Ibrahim MD LAB BLOOD ORDERABLES Final Resul t Performing Organization Address [facility] Phone Number [facility] [address] [place] [phone] * PSA,Total (04/03/2025 10:14 AM EDT) Prostate Specific Antigen 0.13 <0.05 - 4.0 ng/mL [facility] Comment:PSA methodology: Jonathan Rasheed i ChemiluminescentMicroparticle Immunoassay (CMIA) Blood Venous blood specimen / Unknown 04/03/2025 10:14 AM EDT 04/03/2025 11:06 AM EDT [facility] LAB BLOOD ORDERABLES Final Re sult Performing Organization Address [facility] Phone Number [facility] [address] [place] [phone] * Hepatic Function Panel (04/03/2025 10:14 AM EDT) Bilirubin, Direct 0.3 0.0 - 0.5 mg/dL [facility] Blood Venous blood specimen / Unknown 04/03/2025 10:14 AM EDT 04/03/2025 11:06 AM EDT Yuriy Ibrahim MD LAB BLOOD ORDERABLES Final Resul t Performing Organization Address [facility] Co de Phone Number [facility] [address] [place] [phone] * Lipid Panel, Standard (04/03/2025 10:14 AM EDT) Triglycerides 48 <150 mg/dL [facility] Comment:Desirable Triglyceri de: less than 150 mg/dLBorderline High Triglyceride 150-199 mg/dLHigh Triglyceride: 200-499 mg/dLVery High Triglyceride: greater than or equal to 5OO mg/dL Cholesterol 139 <200 mg/dL [facility] Comment:Desirable Cholestero l: less than 200 mg/dLBorderline High Cholesterol: 200-239 mg/dLHigh Cholesterol: greater than 239 mg/dL LDL Cholesterol Calculated 76 <100 mg/dL [facility] Comment:Desirable LDL: less than 100 mg/dLNear Optimal/Above Optimal LDL: 110- 129 mg/dLBorderline High LDL: 130-159 mg/dLHigh LDL: 160-189 mg/dLVery High LDL: greater than or equal to 190 mg/dL HDL Cholesterol 54 >40 mg/dL [facility] Comment:Desirable HDL: great er than 40 mg/dL Note: This HDL assay may give artificially low results in patients with liver disease. Blood Venous blood specimen / Unknown 04/03/2025 10:14 AM EDT 04/03/2025 11:06 AM EDT [facility] LAB BLOOD ORDERABLES Final Re sult [facility] [address] [place] [phone] * (ABNORMAL) Comprehensive Metabolic Panel (04/03/2025 10:14 AM EDT) Sodium 140 135 - 145 mmol/L [facility] Potassium 4.2 3.3 - 5.1 mmol/L [facility] Chloride 104 96 - 108 mmol/L [facility] Carbon Dioxide 28 22 - 29 mmol/L [facility] Anion Gap 12 12 - 20 [facility] Urea Nitrogen (BUN) 17(H) 9 - 16 mg/dL [facility] Creatinine, Serum 0.84 0.5 - 1.4 mg/dL [facility] Estimated Glomerular Filt Rate >60 [facility] Comment:Chronic Kidney Disea se: Estimated GFR < 60 mL/min/1.95u4Mvigfr Kidney Disease: Estimated GFR < 15 mL/min/1.73m2 Glucose 132(H) 60 - 115 mg/dL [facility] Calcium 9.0 8.4 - 10.2 mg/dL [facility] Bilirubin, Total 0.6 0.0 - 1.0 mg/dL [facility] Aspartate Amino Transferase 31 5 - 37 U/L [facility] Alanine Aminotransferase 24 0 - 40 U/L [facility] Total Protein 8.0 6.5 - 8.0 g/dL [facility] Albumin Level 4.5 3.5 - 5.0 g/dL [facility] Alkaline Phosphatase 70 39 - 117 U/L [facility] Blood Venous blood specimen / Unknown 04/03/2025 10:14 AM EDT 04/03/2025 11:[address]T [facility] [employer] LAB BLOOD ORDERABLES Final Re sult [facility] [address] [place] [phone] from Last 3 Months Insurance * Guarantor: Jose Ramon Lemus Account Type Relation to Patient Date of Phone Billing Address Personal/Family Self 1965 [address] [place] [address] [facility] [employer] [employer] Care Teams Bleacher Sulfite Pulp Relationship Specialty Start Date End Date Rosalba Suthelrand FNP [address] [place] [phone] PCP - General Family Medicine 06/04/22
--- OUTSIDE RECORDS SUMMARY | 2025-06-05 13:12 | XMS_ITS | Encounter Summary ---
Author Organization [employer] Address [address] [place] [address] Care Team Providers Care Pathological Technician Name Role Phone Rosalba Sutherland Primary Care Provider [phone] Reason for Visit * Reason Onset Date Comments TB reportin form 06/03/2025 TB reporting fo rm submitted via internet today. Encounter Details Date Type Department Care Team ([facility] Contact Info) Description 06/03/2025 Telephone [facility] [address] [place] [address] Concha Grayson, KIM TB reportin form (TB reporting form submitted via internet today.) Social History Tobacco Use Types Packs/Day Years [...] AM EDT documented as of this encounter Miscellaneous Notes * Telephone Encounter - Concha Grayson RN - 06/03/2025 10:41 AM EDT TB reporting form submitted via internet today. documented in this encounter Plan of Treatment Upcoming Encounters Date Type Department Care Team (Late st Contact Info) Description 08/24/2025 1:00 PM EST Office Visit [facility] [address] [place] [address] Yuriy Ibrahim MD [address] [place] [address] 10/12/2025 9:30 AM EST Office Visit [facility] [address] [place] [address] Maya Zaman OD [address] [place] [address] documented as of this encounter Visit Diagnoses Not on filedocumented in this encounter Additional Health Concerns Assessment Noted Time PHQ-9 Depression Total Score: 5 01/13/20 25 8:10 AM EDT documented as of this encounter Care Teams Pathological Technician Relationship Specialty Start Date End Date Rosalba Sutherland FNP [address] [place] [address] PCP - General Family Medicine 06/04/22 documented as of this encounter
--- OUTSIDE RECORDS SUMMARY | 2025-06-05 13:13 | XMS_ITS | Encounter Summary ---
Author Organization [employer] Address [address] [place] [address] Care Team Providers Care Air Conditioning Engineer Name Role Phone Rosalba Sutherland Primary Care Provider [phone] Encounter Details Date Type Department Care Team (Late st Contact Info) Description 02/26/2023 Orders Only [facility] [address] [place] [phone] Yuriy Ibrahim MD [address] [place] [phone] Chronic hepatitis C without hepatic coma (CMS/HCC) (Primary Dx) Social History Tobacco Use [...] suspected to have Coronavirus/COVID-19? No / Unsure 02/20/2023 8:56 AM EDT documented as of this encounter Plan of Treatment Upcoming Encounters Date Type Department Care Team (Late st Contact Info) Description 08/24/2025 1:00 PM EST Office Visit [facility] [address] [place] [address] Yuriy Ibrahim MD [address] [place] [address] 10/12/2025 9:30 AM EST Office Visit [facility] [address] [place], [place] [phone] Maya Zaman, OD [address] [place], [place] [phone] documented as of this encounter Visit Diagnoses Diagnosis Chronic hepatitis C without hepatic coma (CMS/HCC)- Primary documented in this encounter Additional Health Concerns Assessment Noted Time PHQ-9 Depression Total Score: 16 023 9:07 AM EDT documented as of this encounter Care Teams Air Conditioning Engineer Relationship Specialty Start Date End Date Rosalba Sutherland FNP [address] [place] [address] PCP - General Family Medicine 06/04/22 documented as of this encounter
== END ==
LOC: HO.CARD 12:44
PROVIDERS: Visit Provider Registered Nurse
DX: J44.9 Chronic obstructive pulmonary disease, unspecified (principal); R06.00 Dyspnea, unspecified
CPT/HCPCS: 93306

== ENCOUNTER → 2025-06-05 12:49 | Outpatient (BNV) | payer MEDICAID, SELFPAY | PROVIDERS: Visit Provider Internal Medicine | DX: J96.20 Acute and chronic respiratory failure, unspecified whether with hypoxia or hypercapnia (principal) | CPT/HCPCS: 93306 ==